=== PATIENT | male | born 1995 | race Caucasian/White ===

== ENCOUNTER 2020-08-08 08:21 | Emergency (ER) | payer BC ==
[~2020-08-08] VITALS: Ht 162.6 cm; Wt 59.1 kg
[2020-08-08 10:56] LABS: BASOPHILS # (AUTO) 0.1 X10'3 (0-0.2); BASOPHILS % (AUTO) 0.9 % (0-1); EOSINOPHILS % (AUTO) 0.4 % (0-6); HEMATOCRIT 42.6 % (42.0-52.0); HEMOGLOBIN 14.5 g/dl (14.0-17.9); LYMPHOCYTES # (AUTO) 2.7 X10'3 (1.1-4.8); LYMPHOCYTES % (AUTO) 28.2 % (21-51); MEAN CORPUSCULAR HEMOGLOBIN 29.5 PG (27.0-31.0); MEAN CORPUSCULAR HGB CONC 34.1 g/dL (33.0-36.5); MEAN CORPUSCULAR VOLUME 86.6 FL (78-98); MONOCYTES # (AUTO) 0.8 X10'3 (0-0.9); MONOCYTES % (AUTO) 8.5 % (2-12); NEUTROPHILS # (AUTO) 5.9 X10'3 (1.8-7.7); PLATELET COUNT 225 X10'3 (140-440); RED BLOOD COUNT 4.92 X10'6 (4.70-6.10); RED CELL DISTRIBUTION WIDTH 13.2 % (11.5-14.5); WHITE BLOOD COUNT 9.5 X10'3 (4.5-11.0)
[2020-08-08 11:21] LABS: ALANINE AMINOTRANSFERASE 86 U/L (12-78); ALBUMIN/GLOBULIN RATIO 1.1 (1.1-1.5); ALKALINE PHOSPHATASE 121 IU/L (46-116); ANION GAP 10 (8-16); ASPARTATE AMINO TRANSFERASE 39 U/L (10-37); BILIRUBIN,TOTAL 0.8 MG/DL (0.1-1.0); BLOOD UREA NITROGEN 11 MG/DL (7-18); BUN/CREATININE RATIO 11.2 (5.4-32.0); CALCIUM 8.7 MG/DL (8.5-10.1); CHLORIDE 99 MMOL/L (99-107); CREATININE 0.98 MG/DL (0.60-1.10); GLUCOSE 90 MG/DL (70-104); POTASSIUM 3.8 MMOL/L (3.5-5.1); SODIUM 136 MMOL/L (135-145); TOTAL CARBON DIOXIDE 27.3 MMOL/L (24-32); TOTAL PROTEIN 7.8 G/DL (6.4-8.2); eGFR > 90 ML/MIN
[2020-08-08 11:37] LABS: MONOTEST NEGATIVE (Neg)
[2020-08-08 11:48] LABS: CLARITY,URINE CLEAR (Clear); COLOR,URINE YELLOW (Yellow); GLUCOSE, URINE NEGATIVE (Neg); KETONES,URINE NEGATIVE (Neg); LEUKOCYTE ESTERASE ,URINE NEGATIVE (Neg); NITRITES, URINE NEGATIVE (Neg); OCCULT BLOOD,URINE NEGATIVE (Neg); PH,URINE 6.5 (4.8-8.0); PROTEIN,URINE NEGATIVE (Neg)
--- NOTE | 2020-08-08 11:48 | NUR ---
MOTHER: ADÁN, PICKING TECH HERE, AND FATHER AT BEDSIDE
[2020-08-08 12:13] LABS: UA COLLECTION TYPE URINAL
[2020-08-08] MEDS ORDERED: PANT20TA18 PO (12:26)
[2020-08-08 12:34] VITALS: BP 104/85
== END 2020-08-08 12:35 | disposition home or self-care (01) ==
LOC: ER 08:24
DX: R53.81 Other malaise (principal); Z20.822 Contact with and (suspected) exposure to COVID-19; R53.83 Other fatigue; R07.89 Other chest pain; R51.9 Headache, unspecified; R06.02 Shortness of breath; R50.9 Fever, unspecified; Z72.89 Other problems related to lifestyle; Z88.2 Allergy status to sulfonamides; Z88.1 Allergy status to other antibiotic agents
CPT/HCPCS: 36415; 71045; 80053; 81003; 84145; 84443; 85025; 86308; 87635; 99284; C9803

== ENCOUNTER 2023-11-28 15:42 | Emergency (ER) | payer BC, OTHER ==
[~2023-11-28] VITALS: Ht 162.6 cm; Wt 78.0 kg
[~2023-11-28 15:42] MED LIST: PANT20TA18 PO
[2023-11-28 16:01] VITALS: BP 108/87; PULSE 86; O2SAT 97
[2023-11-28] MEDS: ketorolac trometh 30MG/ML vial 30 MG/ML VIAL IM ONE (17:29)
[2023-11-28] MEDS: HYDROcodone/acetaminophen 5mg/325mg tablet PO ONE (17:30)
[2023-11-28] MEDS ORDERED: NAPR-56 PO (18:12)
[2023-11-28] MEDS ORDERED: HYDR-3964 PO (18:12)
[2023-11-28 18:29] VITALS: RESP 16; TEMP 99.4
== END 2023-11-28 18:31 | disposition home or self-care (01) ==
LOC: ER 15:43
DX: S97.82XA Crushing injury of left foot, initial encounter (principal); Z72.89 Other problems related to lifestyle; Z88.2 Allergy status to sulfonamides; Z88.1 Allergy status to other antibiotic agents; Z79.1 Long term (current) use of non-steroidal anti-inflammatories (NSAID); Z79.899 Other long term (current) drug therapy; X50.9XXA Other and unspecified overexertion or strenuous movements or postures, initial encounter; Y93.89 Activity, other specified; Y92.89 Other specified places as the place of occurrence of the external cause; Y99.8 Other external cause status
CPT/HCPCS: 73630; 73700; 96372; 99285; J1885; A6449